=== PATIENT | female | born 1990 | race Caucasian/White ===

== ENCOUNTER 2017-11-22 13:59 | Emergency (ER) | payer OTHER ==
--- NOTE | 2017-11-22 14:40 | CPEKG ---
Heart Rate: 88 RR Interval: 682 P-R Interval: 140 QRSD Interval: 98 QT Interval: 372 QTC Interval: 450 P [place]: 63 QRS [place]: 45 T Wave [place]: 19 EKG Severity - NORMAL ECG - EKG Impression: SINUS RHYTHM Electronically Signed By: Jhon Borden 22-Nov-2017 14:49:38
[2017-11-22] MEDS ORDERED: IBUPROFEN 600 MG TAB PO ONE (15:06)
--- NOTE | 2017-11-22 15:24 | EDPHY ---
H & P Smoking Status: Never smoked Time Seen by Provider: 11/22/17 14:31 HPI/ROS: CHIEF COMPLAINT: Chest pain HISTORY OF PRESENT ILLNESS: 27-year-old female presents to the emergency department with central chest pain that began early this morning around 10:00 a.m.. The patient states that she was at work. 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 She developed pain in the anterior aspect of her chest that has been continuous since this morning. She denies feeling short of breath. Denies neck or back pain. Denies abdominal pain. No nausea or vomiting. She has not taken anything for the pain. Denies substance abuse. She does not smoke cigarettes. She does take oral contraceptive pills. REVIEW OF SYSTEMS: Constitutional: No fever, no chills. Eyes: No double or blurry vision. ENT: No sore throat. Respiratory: No cough, no shortness of breath. Cardiac: chest pain. Gastrointestinal: No abdominal pain, vomiting or diarrhea. Genitourinary: No dysuria. Musculoskeletal: No neck or back pain. Skin: No rashes. Neurological: No headache. (Elma Hwang) Past Medical/Surgical History: Negative (Elma Hwang) Social History: , from [place], works as a pharmacist. (Elma Hwang) Physical Exam: General Appearance: Alert, no distress. 98% on room air. Eyes: Pupils equal and round. Extraocular motions are all intact. ENT: Mouth: Mucous membranes moist. Respiratory: No wheezing, rhonchi, or rales, lungs are clear to auscultation. Cardiovascular: Regular rate and rhythm. The patient has reproducible pain with palpation to the anterior aspect of her chest. No palpable crepitus or other bony abnormality. Gastrointestinal: Abdomen is soft and nontender, no masses, no rebound or guarding, bowel sounds normal. Neurological: Alert and oriented x 3, cranial nerves II through XII grossly intact Skin: Warm and dry, no rashes. Musculoskeletal: Nontender to palpate along the cervical, thoracic or lumbar spine. Neck is supple. Extremities: Full range of motion and no peripheral edema. Psychiatric: Patient is oriented X 3, there is no agitation. (Elma Hwang) Constitutional: Initial Vital Signs Heart Rate 98 11/22/17 14:00 Respiratory Rate 16 11/22/17 14:00 O2 Sat (%) 98 11/22/17 14:00 O2 Delivery Mode Room Air Allergies/Adverse Reactions: Penicillins Allergy (Verified 11/22/17 14:02) Home Medications: Medication Instructions Recorded NK [No Known Home Meds] 11/22/17 Medical Decision Making - Diagnostics EKG Interpretation: 12-lead EKG interpreted by me; official reading is in trace master. My interpretation is sinus rhythm rate 88 normal intervals and no ischemic changes. (Jhon Borden) ED Course/Re-evaluation: 27-year-old female presents to the emergency department with chest pain. The patient has reproducible pain with palpation to the anterior aspect of her chest. The patient was sent from Urgent Care. Troponin was negative. D-dimer was negative. Patient was given 600 mg of ibuprofen p. O. In the emergency department. She was reassured. She was encouraged to return to the emergency department if she developed recurring pain in her chest especially if she developed any pain with exertion, if she felt short of breath, or if she felt worse in any way. (Elma Hwang) Differential Diagnosis: Chest pain including but not limited to myocardial ischemia, pulmonary embolus, chest wall pain, pleural inflammation and pulmonary infectious causes. (Elma Hwang) - Data Points Laboratory Results: 11/22/17 11/22/17 14:35 14:27 D-Dimer < 0.27 ug/mLFEU ug/mLFEU (0.00-0.50) POC Troponin I 0.00 ng/mL ng/mL (0.00-0.08) Medications Given: Discontinued Medications Ibuprofen (Motrin) 600 mg PO EDNOW ONE Stop: 11/22/17 15:07 Last Admin: 11/22/17 15:12 Dose: 600 mg Point of Care Test Results: Chemistry 11/22/17 14:35 POC Troponin I 0.00 ng/mL ng/mL (0.00-0.08) Departure - Departure Disposition: Home, Routine, Self-Care Clinical Impression: Chest pain Qualifiers: Chest pain type: unspecified Qualified Code(s): R07.9 - Chest pain, unspecified Condition: Good Instructions: Chest Pain (ED) Additional Instructions: Ibuprofen 600 mg every 8 hr as needed for pain. Return to the emergency department if you feel short of breath or if you feel worse in any way. Referrals: Renee Hanna, DO [Doctor of Osteopathy] - 1 day, if not improved (Primary care provider population health coach)
[2017-11-22 15:35] VITALS: BP 128/88
== END 2017-11-22 15:35 | disposition home or self-care (01) ==
DX: R07.9 Chest pain, unspecified (principal)
CPT/HCPCS: 84484-PO